=== PATIENT | female | born 1955 | race Caucasian/White ===

== ENCOUNTER → 2017-01-20 | Outpatient (CLI) | payer OTHER ==
[~2017-01-20] MED LIST: AMLODIPINE-BEN1 EACH PO; ASPIRIN LO-DOSE81 MG PO; CALCIUM 1,0001 EACH PO; CENTRUM SILVER1 TAB PO; CLINDAMYCIN HC150 MG PO; COLACE100 MG PO; DILAUDID 2MG(HYD2 MG PO; FISH OIL PO; FISH OIL1000 MG PO; GLUCOPHAGE1000 MG PO; JANUVIA 100 MG100 MG PO; MIRALAX17 GM PO; MOBIC15 MG PO; NEURONTIN300 MG PO; NIFEREX-150) (150 MG PO; PROTONIX40 M1 PO; TYLENOL EXTRA500 MG PO; VALIUM2 MG PO; XARELTO10 MG PO; ZEBETA5 MG PO; ZOCOR40 MG PO
== END | disposition disaster alternative care site (69) ==
LOC: GBCOE 07:54
DX: Z12.31 Encounter for screening mammogram for malignant neoplasm of breast (principal)
CPT/HCPCS: G0202